=== PATIENT | female | born 1960 | race Caucasian/White ===

== ENCOUNTER 2024-02-22 07:23 | Outpatient (CLI) | payer OTHER | END 2024-02-22 07:32 | disposition home or self-care (01) | LOC: RX STUDY 07:23 | DX: K31.84 Gastroparesis (principal); K76.0 Fatty (change of) liver, not elsewhere classified; E66.01 Morbid (severe) obesity due to excess calories; K57.30 Diverticulosis of large intestine without perforation or abscess without bleeding; R16.0 Hepatomegaly, not elsewhere classified; Z86.010 Personal history of colon polyps; R13.10 Dysphagia, unspecified; K59.09 Other constipation ==